=== PATIENT | female | born 1985 | race Caucasian/White ===

== ENCOUNTER 2020-08-28 16:52 | Emergency (ER) | payer SELFPAY ==
[~2020-08-28] VITALS: Ht 162.6 cm; Wt 116.1 kg
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
--- NOTE | 2020-08-28 17:30 | NUR ---
[facility] [employer],UNIT [id number] AT BEDSIDE
--- NOTE | 2020-08-28 17:30 | NUR ---
seen and evaluated by md carrero. waiting for new orders
[2020-08-28] MEDS ORDERED: DIAZEPAM 5 MG TABLET ONE (17:36)
[2020-08-28] MEDS ORDERED: ACETAMINOPHEN ES 500 MG TABLET ONE (17:37)
[2020-08-28] MEDS: DIAZEPAM 5 MG TABLET PO ONE (17:43)
[2020-08-28] MEDS: ACETAMINOPHEN 325 MG TABLET PO ONE (17:43)
--- NOTE | 2020-08-28 17:53 | NUR ---
c/o back pain. non pharmacological intrvntion provided such as repositioning. pt stated feeling much comfortable. at needs attended
--- NOTE | 2020-08-28 18:08 | NUR ---
pt went to radiology for x-ray
[2020-08-28] MEDS ORDERED: MORPHINE SULFATE INJ 2 MG/ML DISP.SYRIN ONE (18:56)
[2020-08-28] MEDS ORDERED: ONDANSETRON 4 MG TAB.RAPDIS ONE (18:57)
[2020-08-28] MEDS: ONDANSETRON 4 MG TAB.RAPDIS PO ONE (19:07)
[2020-08-28] MEDS: MORPHINE SULFATE INJ 2 MG/ML DISP.SYRIN IM ONE (19:07)
--- NOTE | 2020-08-28 19:27 | NUR ---
JAMAAL NORRIS at bed side
--- NOTE | 2020-08-28 19:30 | NUR ---
CALLED RT FOR SPIROMETER
--- NOTE | 2020-08-28 19:51 | NUR ---
PT IS MEDICALLY STABLE FOR D/C. Rx and Written and verbal after care instructions given. Patient verbalizes understanding of instruction.
--- NOTE | 2020-08-28 20:09 | NUR ---
Patient discharged to home in stable condition. RT provided pt w a IS and in structed the pt on how to use it w/ understanding. pt ambulatory w/ steady gaits upon discharge.
[2020-08-28 20:13] VITALS: BP 141/78
== END 2020-08-28 20:14 | disposition home or self-care (01) ==
LOC: ER 17:00
DX: R51 Headache (principal); M54.5 Low back pain; R07.89 Other chest pain; R20.0 Anesthesia of skin; V49.49XA Driver injured in collision with other motor vehicles in traffic accident, initial encounter; Y93.89 Activity, other specified; Y92.413 State road as the place of occurrence of the external cause; Y99.8 Other external cause status
CPT/HCPCS: 36415; 70450; 71045; 72131; 84702; 96372; 99285; J2270; Q0162